=== PATIENT | female | born 1980 | race Caucasian/White ===

== ENCOUNTER 2024-03-08 13:11 | Emergency (ER) | payer SELFPAY ==
[2024-03-08 13:18] VITALS: BP 143/87; PULSE 95; RESP 17; TEMP 37.4; O2SAT 99
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
--- NOTE | 2024-03-08 13:40 | PC.PHAR ---
patient just wanted me to make note that once her evaluation is completed that the findings be sent to the social and political studies professor on her case? christopher Gardiner [phone] is the number on the business card
[2024-03-08 13:59] LABS: Basophils # 0.1 10^3/uL (0.0-0.1); Basophils % 0.7 %; Eosinophils # 0.2 10^3/uL (0.0-0.8); Eosinophils % 2.1 %; Hematocrit 44.2 % (36-47); Lymphocytes # 1.6 10^3/uL (0.8-4.8); Lymphocytes % 19.7 %; Mean Corpuscular Hemoglobin 31.1 pg (27-33); Monocytes # 0.6 10^3/uL (0.2-0.9); Monocytes % 7.4 %; Neutrophils # 5.62 10^3/uL (1.8-7.7); Neutrophils % 69.9 %; Nucleated Red Blood Cells % 0 %; Platelet Count 346 10^3/cmm (157-399); Red Cell Distribution Width 12.5 % (12.1-15.1); White Blood Count 8.06 10^3/uL (3.29-11.43)
[2024-03-08 14:06] LABS: HCG, Serum Qual Negative (Negative)
[2024-03-08 14:13] LABS: Alanine Aminotransferase 11 U/L (0-33); Albumin Level 4.3 g/dL (3.5-5.2); Alkaline Phosphatase 64 U/L (35-105); Anion Gap 14.7 (5-19); Aspartate Amino Transferase 13 U/L (0-32); Blood Urea Nitrogen 9 mg/dL (6-20); Calcium 9.1 mg/dL (8.5-10.5); Carbon Dioxide 26 mmol/L (22-29); Chloride 103 mmol/L (98-107); Globulin 3.7 g/dL (1.3-4.6); Glomerular Filtration Rate 92.2 mL/min (90-130); Glucose 111 mg/dL (65-115); Osmolality Calculated 287 mOsm/kg (285-295); Potassium 4.7 mmol/L (3.5-5.1); Salicylate 0.8 mg/dL (3-10); Sodium 139 mmol/L (136-145); Total Bilirubin 0.2 mg/dL (0.15-1.2)
[2024-03-08 14:14] LABS: Amphetamines Screen Urine Negative (Negative); Barbiturates Screen Urine Negative (Negative); Benzodiazepines Screen Urine Negative (Negative); Cocaine Screen Urine Negative (Negative); Opiate Screen Urine Negative (Negative); PCP Screen Urine Negative (Negative); THC Screen Urine Negative (Negative)
[2024-03-08 14:18] LABS: Acetaminophen < 5.0 ug/mL (10-30); Alcohol Level < 10 mg/dL (0-10)
[2024-03-08 14:58] VITALS: BP 138/89; PULSE 89; RESP 16; O2SAT 100
== END 2024-03-08 14:48 | disposition home or self-care (01) ==
PROVIDERS: Emergency Provider Physician Assistant
DX: Z13.30 Encounter for screening examination for mental health and behavioral disorders, unspecified (principal)
CPT/HCPCS: 36415; 80053; 80306; 80307; 84703; 85025; 99283

== ENCOUNTER → 2024-05-03 14:41 | Outpatient (BNVA) | payer OTHER, SELFPAY | PROVIDERS: Visit Provider Psychiatry & Neurology Psychiatry | DX: F43.22 Adjustment disorder with anxiety (principal); F10.10 Alcohol abuse, uncomplicated; Z79.899 Other long term (current) drug therapy | CPT/HCPCS: 80061; 83036 ==